=== PATIENT | male | born 1985 | race Caucasian/White ===

== ENCOUNTER 2017-01-21 10:38 | Day surgery (SDC) | payer MEDICARE, OTHER ==
[2017-01-20 08:40] VITALS: BMI 25.8
[~2017-01-21 10:38] MED LIST: LACTATED RINGERS 1,000 ML IV SCH
[2017-01-21] MEDS ORDERED: LIDOCAINE 1% 20 ML VIAL (10MG/ML) FOR IV START INTRADERMA ONE (11:17)
[2017-01-21] MEDS ORDERED: PROPOFOL 10 MG/ML 20 ML VIAL IV ONE (11:19)
[2017-01-21] MEDS ORDERED: LIDOCAINE 1% INJ 10MG/ML (20 ML MDV) ONE (11:19)
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
--- NOTE | 2017-01-21 11:36 | P.OP ---
Date of Procedure: 01/21/17 Preoperative Diagnosis: GERD Postoperative Diagnosis: Mild antral gastritis Minimal esophagitis No significant hiatal hernia Procedure(s) Performed: EGD Anesthesia: MAC Surgeon: Biju Hale Pathology: other (Antrum, esophagus) Condition: stable Disposition: PACU Description of Procedure: The patient's placed on the endoscopy table lateral position. He received IV sedation. The gastroscope some placed oropharynx and passed into the esophagus and into the stomach. The scope was then placed through the pylorus. The first and second portion of the duodenum appeared normal. Scope was then brought back the antrum and this appeared minimally inflamed a biopsies was performed. The scope was then retroflexed and the remainder some appeared normal. There is no hiatal hernia. The GE junction was at 40 cm. The distal esophagus appeared minimally inflamed and a biopsies performed. The proximal esophagus appeared normal. Scope was withdrawn for patient. Due to the patient's complaints of indigestion and dyspepsia in his minimal endoscopic findings. A HIDA scan was ordered.
[2017-01-21 11:48] VITALS: TEMP 97.4
[2017-01-21 12:01] VITALS: RESP 18
[2017-01-21 12:28] VITALS: BP 96/47; PULSE 66
== END 2017-01-21 13:06 | disposition home or self-care (01) ==
LOC: ORWHC2ENDO 10:38
PROVIDERS: ATTEND Surgery
DX: K21.0 Gastro-esophageal reflux disease with esophagitis (principal); K29.50 Unspecified chronic gastritis without bleeding; F17.200 Nicotine dependence, unspecified, uncomplicated; Z79.899 Other long term (current) drug therapy
CPT/HCPCS: 88305; 88342; 43239; J2001; J2704

== ENCOUNTER → 2017-02-08 | Outpatient (CLI) | payer MEDICARE, OTHER ==
--- NOTE | 2017-02-08 15:32 | NM ---
EXAMINATION TYPE: NM hepatobiliary w EF DATE OF EXAM: 02/08/2017 3:12 PM COMPARISON: NONE INDICATION: Abdomen pain TECHNIQUE: After the intravenous administration of 5.02 mCi Tc 99m Mebrofenin hepatobiliary scintigra phy is performed. Images were obtained immediately post injection. FINDINGS: There is prompt uptake and excretion of radiotracer by the liver. Extrahepatic ducts are identified at 12 minutes. The gallbladder is visualized within 12 minutes. At one hour 8 ounces of oral ensure plus is given to mimic CCK and gallbladder ejection fraction is c alculated at 29 %, which is low. (Normal >35% and <80%.). IMPRESSION: 1. Biliary hypokinesia.
== END | disposition home or self-care (01) ==
LOC: RADNMMAIN 13:05
PROVIDERS: ATTEND Surgery
DX: R10.9 Unspecified abdominal pain (principal)
CPT/HCPCS: 78226; A9537